=== PATIENT | female | born 1965 | race Caucasian/White ===

== ENCOUNTER 2025-08-20 06:37 | Inpatient (IN) | payer MEDICAID, SELFPAY ==
[2025-08-20] VITALS (10 sets, daily range): BP systolic 106–146; BP diastolic 51–66; PULSE 78–97; RESP 16–22; TEMP 36.2–37.4; O2SAT 87–97; BMI 48.2; BMI 47.6
--- NOTE | ~2025-08-20 | XR_ITS ---
EXAMINATION: XR CHEST CLINICAL INFORMATION: cough COMPARISON: None available. TECHNIQUE: 2 views of the chest were obtained. FINDINGS: The cardiac, hilar, and mediastinal contours are normal. Lungs are mildly hyperaerated bilaterally, with mild flattening of the hemidiaphragms. There is patchy airspace and peribronchial opacity in the left lower lobe, suspicious for bronchopneumonia. The right lung appears clear. There is no pneumothorax or pleural effusion. There is no focal osseous or soft tissue abnormality. XR/XR chest 2V IMPRESSION: Findings suspicious for patchy left lower lobe bronchopneumonia. Electronically signed by: Jason Sethi MD 08/20/2025 08:33 AM [facility]
--- NOTE | 2025-08-20 06:48 | ED.SOB ---
HPI - SOB/Dyspnea General Chief Complaint: Dyspnea Stated Complaint: SOB,PROD COUGH X4D, DUONEB/SOLUMEDROL GIVEN Time Seen by Provider: 08/20/25 06:43 Source: patient Mode of arrival: EMS Limitations: no limitations History of Present Illness HPI Narrative: This is a 59 years old the patient with a history of asthma presented to the emergency department complaining of shortness of breath, cough malaise. She was brought here by the assessment manager she was given nebulizer albuterol and Solu-Medrol 125 by the EMS. She denies any fever or chills MD elicited complaint: shortness of breath, cough and asthma attack Pertinent past history: asthma Onset (ago): day(s) (3) Timing: constant Severity: moderate Exacerbating factors: nothing Relieving factors: nothing Known history of: asthma Associated symptoms: denies other symptoms Treatment prior to arrival: bronchodilator Related Data Home oxygen amount: none Allergies Allergy/AdvReac Type Severity Reaction Status Date / Time amoxicillin Allergy Severe Rash Verified 08/20/25 06:44 Review of Systems Constitutional: Constitutional: Reports no additional constitutional complaints ENT: Reports system reviewed and no additional complaints, except as documented Cardiovascular: Cardiovascular: Reports no additional cardiovascular complaints Respiratory: Respiratory: Reports chest congestion and Reports cough Gastrointestinal: Gastrointestinal: Reports as per [facility] Past Medical History Attestation statement: The following information was validated with the patient. [facility] Narrative: Asthma,fibromyalgia Social History Social History Smoked in Last 30 Days: Yes Use of substances other than those prescribed or required for medical reasons: No Advance Directives: No Advance Directives Information Provided: No Do you have a plan to hurt others: No Plan Physical Exam Exam: Exam: Mild distress Vital Signs: Vital Signs: Last Vital Signs Temp 98.5 F 08/20/25 08:44 Pulse 93 08/20/25 08:44 Resp 20 08/20/25 08:44 BP 136/61 08/20/25 08:44 Pulse Ox 87 L 08/20/25 09:28 O2 Del Method Room Air 08/20/25 09:28 O2 Flow Rate 1 08/20/25 08:44 BMI result Body Mass Index 48.2 Const: General: cooperative Nutritional Appearance: average body habitus Orientation/consciousness: oriented to person and patient oriented x3 HEENT: Head: Yes normal to inspection Ears: hearing grossly normal bilaterally General nose exam: Normal external nose present Face and sinus: Yes normal facial exam Mouth: Normal oral and palatal mucosa present Teeth and gingiva: dentition normal Throat: Yes posterior oropharynx normal Neck: Neck: Yes normal visual inspection Chest: Chest palpation & inspection: normal inspection of the chest Resp: Auscultation: wheezes Cardio: Jugular venous distension: no JVD Rate: regular rate GI: Inspection: Yes normal to inspection Palpation (GI): Soft to palpation, not firm and nontender Neuro: General: oriented to person and patient oriented x3 Motor exam (neuro): 5/5 motor strength present throughout Course Reevaluation(s) Reevaluation #1: Patient has 2 L of O2 requirement she will be admitted for IV antibiotic steroid neb Time: 09:38 Medications Administered Discontinued Medications Generic Name Dose Route Start Last Admin Trade Name Freq PRN Reason Stop Dose Admin Albuterol Sulfate 5 mg/ 0 mg 08/20/25 07:35 08/20/25 07:40 Albuterol/Ipratropium 3 ml INHALE 08/20/25 07:36 1 each ONCE ONE Administration Medical Decision Making Medical Decision Making [facility] Narrative: Patient is here with shortness of breath wheezing working diagnosis is asthma exacerbation we will administer beta 2 agonist she already had a steroid the in the field 09:46 a.m. clinical picture most consistent with a asthma exacerbation with underlying pneumonia she has a an oxygen requirement she will need admission Differential Diagnosis Differential Diagnoses: The differential diagnosis associated with the presentation includes Has been exacerbation/pneumonia/influenza Admission/Observation Consideration of admission/observation: Escalation of care including admission/observation considered Lab Data [facility] Lab Attestation statement: I reviewed the patient's lab results. 08/20/25 08:00 08/20/25 08:00 Labs: Lab Results 08/20/25 Range/Units 08:00 WBC 6.7 (4.8-10.8) X10*3/uL RBC 4.41 (4.20-5.50) X10*6/uL Hgb 11.8 L (12.0-16.0) g/dl Hct 38.9 (37.0-47.0) % MCV 88.2 (80.0-98.0) fL MCH 26.8 L (27.0-33.0) pg MCHC 30.3 L (31.0-35.0) g/dl RDW 13.6 (11.0-16.0) % Plt Count 225 (160-400) X10*3/uL MPV 10.7 (9.4-12.3) fL Immature Gran % (Auto) 0.4 (0.0-0.4) % Neut % (Auto) 60.7 (45-73) % Lymph % (Auto) 31.3 (20-40) % Swift % (Auto) 6.7 (2-11) % Eos % (Auto) 0.3 (0-4) % Baso % (Auto) 0.6 (0-2) % Lymph # (Auto) 2.1 (1.2-4.9) X10*3/uL Swift # (Auto) 0.5 (0.1-1.2) X10*3/uL Eos # (Auto) 0.0 (0.0-0.4) X10*3/uL Baso # (Auto) 0.0 (0.0-0.2) X10*3/uL Abs Immat Gran (auto) 0.03 (0.00-0.03) X10*3/uL Absolute Neuts (auto) 4.1 (2.0-8.3) x10*3/uL Absolute Nucleated RBC 0.000 (0.0-0.012) X10*3/uL Nucleated RBC % (auto) 0.0 (0.0-0.2) /100WBC Sodium 143 (135-145) mmol/L Potassium 3.5 (3.3-5.1) mmol/L Chloride 112 H (96-108) mmol/L Carbon Dioxide 21 L (22-29) mmol/L Anion Gap 14 (12-20) BUN 15 (9-16) mg/dL Creatinine 0.84 (0.5-1.4) mg/dL Estim Creat Clear Calc 93.1 Estimated GFR > 60 Random Glucose 183 H (60-115) mg/dL Calcium 9.3 (8.4-10.2) mg/dL Total Bilirubin 0.2 (0.0-1.0) mg/dL AST 33 H (5-31) U/L ALT 26 (0-31) U/L Alkaline Phosphatase 102 (39-117) U/L Troponin I High Sens < 2.7 (<3.5-17.0) ng/L Total Protein 7.0 (6.5-8.0) g/dL Albumin 4.5 (3.5-5.0) g/dL Influenza Type A (PCR) NEGATIVE (Negative) Influenza Type B (PCR) NEGATIVE (Negative) RSV RNA Qual (PCR) NEGATIVE (Negative) SARS-CoV-2 RNA (RT-PCR) NEGATIVE (Negative) Independent Interpretation I performed an independent interpretation of an: Plain X-Ray Interpretation: left lower lobe infiltrate Radiology Impression Discussion of test interpretation with radiology: I have reviewed the radiologist's reading. Radiologist Impression: al. Lungs are mildly hyperaerated bilaterally, with mild flattening of the hemidiaphragms. There is patchy airspace and peribronchial opacity in the left lower lobe, suspicious for bronchopneumonia. The right lung appears clear. There is no pneumothorax or pleural effusion. There is no focal osseous or soft tissue abnormality. XR/XR chest 2V IMPRESSION: Findings suspicious for patchy left lower lobe bronchopneumonia. Electronically signed by: Jason Sethi MD 08/20/2025 08:33 AM EST Dictated By: Jason Sethi MD Signed By: <Electronically signed by Jason Sethi MD in OV> 08/20/25832 DD/ 4 Critical Care Time Critical Care Time Critical Care Time: Yes Total Critical Care Time: 60 Attestation: Nebs multiple Discharge Plan Discharge Clinical Impression: Hypoxia Community acquired pneumonia Qualifiers: Laterality: left Lung location: lower lobe of lung Qualified Code(s): J18.9 - Pneumonia, unspecified organism Asthma exacerbation Qualifiers: Asthma severity: moderate Asthma persistence: persistent Qualified Code(s): J45.41 - Moderate persistent asthma with (acute) exacerbation Patient Disposition: Admitted As Inpatient Print Language: Lebanese
[2025-08-20] MEDS: Albuterol Sulfate 5 MG, Albuterol/Iprat 2.5/0.5MG 3 ML 3 ML INHALE (07:40)
[2025-08-20 08:06] LABS: MANUAL DIFF FLAG NO
[2025-08-20 08:11] LABS: Hematocrit 38.9 % (37.0-47.0); Hemoglobin 11.8 g/dl (12.0-16.0); Imm Gran Abs Auto 0.03 X10*3/uL (0.00-0.03); Imm Gran Pct Auto 0.4 % (0.0-0.4); Lymphocytes Absolute Auto 2.1 X10*3/uL (1.2-4.9); Mean Corpuscular HGB Conc 30.3 g/dl (31.0-35.0); Mean Corpuscular Hemoglobin 26.8 pg (27.0-33.0); Mean Corpuscular Volume 88.2 fL (80.0-98.0); NRBC Abs Auto 0.000 X10*3/uL (0.0-0.012); NRBC Pct Auto 0.0 /100WBC (0.0-0.2); Platelet Count 225 X10*3/uL (160-400); Red Blood Count 4.41 X10*6/uL (4.20-5.50); White Blood Count 6.7 X10*3/uL (4.8-10.8)
[2025-08-20 08:25] LABS: Alanine Aminotransferase 26 U/L (0-31); Albumin Level 4.5 g/dL (3.5-5.0); Alkaline Phosphatase 102 U/L (39-117); Anion Gap 14 (12-20); Aspartate Amino Transferase 33 U/L (5-31); Blood Urea Nitrogen 15 mg/dL (9-16); Calcium 9.3 mg/dL (8.4-10.2); Carbon Dioxide 21 mmol/L (22-29); Chloride 112 mmol/L (96-108); Creatinine Clr Calc Pharmacy 93.1; Estimated Glomerular Filt Rate > 60; Potassium 3.5 mmol/L (3.3-5.1); Sodium 143 mmol/L (135-145); Total Protein 7.0 g/dL (6.5-8.0)
[2025-08-20 08:33] LABS: Troponin-I High Sensitivity < 2.7 ng/L (<3.5-17.0)
[2025-08-20 08:44] LABS: Resp Syncy Virus RNA Qual PCR NEGATIVE (Negative); SARS COV2 PCR INHOUSE NEGATIVE (Negative)
--- NOTE | 2025-08-20 10:02 | PM.IMHP ---
History of Present Illness Date of Service: 08/20/25 Chief Complaint: Wheezing 59-year-old woman presenting from a senior living to the ED with complaints of worsening shortness breath, fever, chills. She reports that there was some sort of virus going around in the senior living and she feels like she probably got it. Her symptoms started about 4 days ago with shortness of breath and wheezing. She has not inhaler but reports that it does not work for her and she does not like it. She denied any chest pain, vomiting, diarrhea. She smokes 6 cigarettes a day and is not on oxygen. Chest x-ray shows findings suspicious for patchy left lower lobe bronchopneumonia. Patient received albuterol and doxycycline in the ER. She will be placed on observation for acute hypoxic respiratory failure secondary to asthma exacerbation. Review of Systems Review of Systems: Denies any recent fever chills or decrease in appetite respiratory see HPI cardiovascular denied chest pain gastrointestinal denies any dysphagia abdominal pain nausea vomiting or diarrhea genitourinary denies any dysuria frequency or hematuria musculoskeletal denies any joint pain or swelling neuropsych denies any weakness or seizures all other systems reviewed are negative [facility] Medical History (Updated 08/20/25 @ 10:06 by lGory Kang NP) Perirectal fistula Anxiety Chronic back pain Asthma Family History (Updated 08/20/25 @ 10:06 by Glory Kang NP) Brother Cardiac disease Social History (Updated 08/20/25 @ 10:09 by Glory Kang NP) Housing Other:: from [facility], came [facility] house/ Grp home Alcohol intake: former Comment: Sober for 4 months Tobacco use type: Cigarette Cigarettes Per Day: 6 Meds Allergies Allergy/AdvReac Type Severity Reaction Status Date / Time amoxicillin Allergy Severe Rash Verified 08/20/25 06:44 Active Medications: Current Medications Acetaminophen (Acetaminophen 325 Mg Tablet) 650 mg PO Q6H PRN PRN Reason: Pain, Mild 1-3,fever,headache Calcium Carbonate (Calcium Carbonate 750 Mg Tab.Chew) 750 mg PO Q4H PRN PRN Reason: Heartburn Enoxaparin Sodium (Enoxaparin Sodium 40 Mg/0.4 Ml Syringe) 40 mg SUBCUT Q24H RIGO Doxycycline Hyclate 100 mg/ (Sodium Chloride) 250 mls @ 166.67 mls/hr IV ONCE ONE Stop: 08/20/25 11:02 Magnesium Hydroxide (Milk Of Magnesia 30 Ml Oral.Susp) 30 ml PO DAILY PRN PRN Reason: Constipation Melatonin (Melatonin 3 Mg Tablet) 6 mg PO BEDTIME PRN PRN Reason: Insomnia Ondansetron HCl (Ondansetron Hcl 4 Mg/2 Ml Vial) 4 mg IVPUSH Q8H PRN PRN Reason: Nausea and Vomiting Sodium Chloride (0.9 % Sodium Chloride Flush 3 Ml Syringe) [facility]ations ?Medication ?Instructions ?Recorded ?Confirmed ?Last Taken ?Type aripiprazole 20 mg tablet 20 mg PO DAILY 08/20/25 Unknown History clonazepam 2 mg tablet 2 mg PO TID PRN Anxiety 08/20/25 08/20/25 Unknown History fluoxetine 20 mg capsule 20 mg PO DAILY 08/20/25 Unknown History gabapentin 600 mg tablet mg PO 08/20/25 Unknown History lisdexamfetamine 30 mg capsule 30 mg PO DAILY 08/20/25 Unknown History (Ameena) Physical Exam Vital Signs and Narrative: Vital Signs: Last Vital Signs Temp 98.5 F 08/20/25 08:44 Pulse 93 08/20/25 08:44 Resp 20 08/20/25 08:44 BP 136/61 08/20/25 08:44 Pulse Ox 87 L 08/20/25 09:28 O2 Del Method Room Air 08/20/25 09:28 O2 Flow Rate 1 08/20/25 08:44 BMI result Body Mass Index 48.2 Appearing in no acute distress head is normocephalic atraumatic eyes pupils are PERRLA sclera is anicteric mouth throat mucous membranes are intact and moist neck is supple no lymphadenopathy, no JVD noted lung sounds expiratory wheezing heart regular rate rhythm, clear S1, S2 positive bowel sounds, abdomen is soft, nontender neuro patient is alert x3, no focal deficits Results Labs 08/20/25 08:00 08/20/25 08:00 Labs: Laboratory Results - last 24 hr 08/20/25 08:00 MCV 88.2 MCH 26.8 L MCHC 30.3 L RDW 13.6 Plt Count 225 MPV 10.7 Immature Gran % (Auto) 0.4 Neut % (Auto) 60.7 Lymph % (Auto) 31.3 [place] % (Auto) 6.7 Eos % (Auto) 0.3 Baso % (Auto) 0.6 Lymph # (Auto) 2.1 [place] # (Auto) 0.5 Eos # (Auto) 0.0 Baso # (Auto) 0.0 Abs Immat Gran (auto) 0.03 Absolute Neuts (auto) 4.1 Absolute Nucleated RBC 0.000 Nucleated RBC % (auto) 0.0 Anion Gap 14 Estim Creat Clear Calc 93.1 Estimated GFR > 60 Random Glucose 183 H Calcium 9.3 Total Bilirubin 0.2 AST 33 H ALT 26 Alkaline Phosphatase 102 Troponin I High Sens < 2.7 Total Protein 7.0 Albumin 4.5 Influenza Type A (PCR) NEGATIVE Influenza Type B (PCR) NEGATIVE RSV RNA Qual (PCR) NEGATIVE SARS-CoV-2 RNA (RT-PCR) NEGATIVE Imaging Radiologist's Impressions: Impressions Chest X-Ray 08/20/25 08:25 IMPRESSION: Findings suspicious for patchy left lower lobe bronchopneumonia. Electronically signed by: Jason Sethi MD 08/20/2025 08:33 AM [facility] Assessment and Plan (1) Asthma exacerbation: Qualifiers: Asthma persistence: persistent Asthma severity: moderate Qualified Code(s): J45.41 - Moderate persistent asthma with (acute) exacerbation Status: Acute Plan 59-year-old woman admitted with acute hypoxic respiratory failure secondary to asthma exacerbation and bronchopneumonia Acute hypoxic respiratory failure secondary to asthma exacerbation and bronchopneumonia Started on IV doxycycline Prednisone Scheduled DuoNebs, patient requested updraft machine when discharged Supplemental oxygen to keep oxygen saturation greater than 90% Check respiratory pathogen panel Mental health Continue home medications Chronic back pain Continue gabapentin Tobacco use Patient states she smokes 6 cigarettes today Discussed the importance of smoking cessation Nicotine replacement offered Obesity class 3. BMI 48.2 Discussed importance of weight management as this may be contributing to worsening of other comorbidities DVT prophylaxis with Lovenox Full code Quality Stroke Does the patient have a stroke diagnosis?: No VTE Prior VTE?: No VTE Risk Level:: Medical - moderate - high VTE Device Contraindication: Treatment Not Indicated VTE Drug Contraindication: N/A - Med Ordered
--- NOTE | 2025-08-20 11:04 | HO.NURTONUR ---
came in with cough and sob, ra spo2 87-88, pneumonia, ambulates without assistance, 20 l upper arm, on 2lpm nc, alert
[2025-08-20] MEDS: Albuterol Sulfate (0.083%) 2.5 MG/3 ML VIAL.NEB INHALE ×3 (11:17→19:41)
[2025-08-20 11:37] LABS: Chlamydia pneumoniae PCR Not Detected (Not Detect.); Coronavirus 229E PCR Not Detected (Not Detect.); Coronavirus HKU1 PCR Not Detected (Not Detect.); Coronavirus NL63 PCR Not Detected (Not Detect.); Coronavirus OC43 PCR Not Detected (Not Detect.); RSV PCR Not Detected (Not Detect.); Rhino/Enterovirus PCR Not Detected (Not Detect.)
[2025-08-20 11:47] LABS: Influenza A H1 PCR Not Detected (Not Detect.); Influenza A H1-2009 PCR Not Detected (Not Detect.); Influenza A H3 PCR Not Detected (Not Detect.); SARS-CoV-2 PCR Not Detected (Not Detect.)
[2025-08-20 12:21] LABS: Reflex Lactate? Lactic Acid Added
[2025-08-20 13:18] LABS: ~Lactic Acid-LAB USE ONLY 3.3 mmol/L (0.5-2.0)
[2025-08-20 14:36] LABS: Reflex Lactate? 2 Y
[2025-08-20 15:38] LABS: ~Lactic Acid-LAB USE ONLY 3.3 mmol/L (0.5-2.0)
--- NOTE | 2025-08-20 16:13 | PHA.MEDREC ---
Addendum entered by Isabell Barron [facility] 08/20/25 17:28: Glory Kang contacted med rec complete Original Note: Pharmacy Consult ? Medication Reconciliation Pharmacy has completed the medication reconciliation.Spoke with RN at [facility] who verified all medication and directions. Medications were recently filled at [facility] and patient was recently at [facility] where most of these medications came from.
[2025-08-20] MEDS: 0.9 % Sodium Chloride Flush 3 ML SYRINGE IVFLUSH (20:06)
[2025-08-21] VITALS (8 sets, daily range): BP systolic 109–158; BP diastolic 51–67; PULSE 76–89; RESP 18–21; TEMP 36–36.6; O2SAT 92–94
[2025-08-21 06:06] LABS: Hematocrit 38.4 % (37.0-47.0); Hemoglobin 11.7 g/dl (12.0-16.0); Mean Corpuscular HGB Conc 30.5 g/dl (31.0-35.0); Mean Corpuscular Hemoglobin 26.7 pg (27.0-33.0); Mean Corpuscular Volume 87.7 fL (80.0-98.0); NRBC Abs Auto 0.000 X10*3/uL (0.0-0.012); NRBC Pct Auto 0.0 /100WBC (0.0-0.2); Platelet Count 258 X10*3/uL (160-400); Red Blood Count 4.38 X10*6/uL (4.20-5.50); White Blood Count 7.1 X10*3/uL (4.8-10.8)
[2025-08-21 06:24] LABS: Anion Gap 11 (12-20); Blood Urea Nitrogen 22 mg/dL (9-16); Calcium 9.2 mg/dL (8.4-10.2); Carbon Dioxide 25 mmol/L (22-29); Chloride 115 mmol/L (96-108); Creatinine Clr Calc Pharmacy 84.4; Estimated Glomerular Filt Rate > 60; Potassium 4.2 mmol/L (3.3-5.1); Sodium 147 mmol/L (135-145)
[2025-08-21] MEDS: 0.9 % Sodium Chloride Flush 3 ML SYRINGE IVFLUSH ×2 (08:02→23:34)
[2025-08-21] MEDS: Albuterol Sulfate (0.083%) 2.5 MG/3 ML VIAL.NEB INHALE ×4 (08:32→20:12)
--- NOTE | 2025-08-21 09:51 | MHC.CM.PN ---
pt lives at [facility], [place] where she will return when dcd pt fro the [place] [facility] she willmay need assist with transport back to [facility]
--- NOTE | 2025-08-21 11:20 | PC.NURSE ---
Pt changed from OBS to In pt
--- NOTE | 2025-08-21 11:37 | P.PNIM_ITS ---
Subjective Subjective Date of Service: 08/21/25 Interval History: Patient seen examined at bedside this morning, patient states that her breathing has improved, sodium is 147. At this time states that she is feeling better than yesterday. Review of Systems Review of Systems: Yes all other systems are reviewed and are negative Physical Exam 2 Exam: Exam: General: AxOx3, No acute distress Head: AT/NC ENT: Moist mucous membranes Neck: supple CVS; RRR, S1 S2 normal Lungs: Decreased bilateral breath sounds, wheezing Abd: Soft non tender, non distended Ext: No edema and no calf tenderness MSK: moving all 4 limbs Skin: No cyanosis or edema Psych: Cooperative with exam Neurology: no focal deficit Vital Signs: Vital Signs: Last Vital Signs Temp 97.8 F 08/21/25 07:32 Pulse 76 08/21/25 11:07 Resp 18 08/21/25 11:07 BP 109/51 L 08/21/25 07:32 Pulse Ox 92 08/21/25 07:32 O2 Del Method Room Air 08/21/25 07:32 O2 Flow Rate 1 08/20/25 08:44 BMI result Body Mass Index 47.6 Objective Data Active Medications Acetaminophen (Acetaminophen 325 Mg Tablet) 650 mg PO Q6H PRN PRN Reason: Pain, Mild 1-3,fever,headache Last Admin: 08/20/25 23:26 Dose: 650 mg Documented By: SANJANA Albuterol Sulfate (Albuterol Sulfate (0.083%) 2.5 Mg/3 Ml Vial.Neb) 2.5 mg INHALE RQ4H WHILE AWAKE [facility] Last Admin: 08/21/25 11:03 Dose: 2.5 mg Documented By: MIGUEL Aripiprazole (Aripiprazole 20 Mg Tablet) 20 mg PO BEDTIME [facility] Last Admin: 08/20/25 20:06 Dose: 20 mg Documented By: SANJANA Calcium Carbonate (Calcium Carbonate 750 Mg Tab.Chew) 750 mg PO Q4H PRN PRN Reason: Heartburn Clonazepam (Clonazepam 1 Mg Tablet) 2 mg PO TID PRN PRN Reason: Anxiety Last Admin: 08/20/25 22:47 Dose: 2 mg Documented By: SANJANA Clonidine HCl (Clonidine Hcl 0.1 Mg Tablet) 0.1 mg PO DAILY@0700 [facility]; Protocol Clonidine HCl (Clonidine Hcl 0.2 Mg Tablet) 0.2 mg PO BEDTIME [facility]; Protocol Enoxaparin Sodium (Enoxaparin Sodium 40 Mg/0.4 Ml Syringe) 40 mg SUBCUT Q24H [facility] Last Admin: 08/21/25 11:10 Dose: 40 mg Documented By: LISETTE Fluoxetine HCl (Fluoxetine Hcl 20 Mg Capsule) 20 mg PO DAILY [facility] Last Admin: 08/21/25 09:00 Dose: 20 mg Documented By: LISETTE Gabapentin (Gabapentin 600 Mg Tablet) 600 mg PO BID [facility] Last Admin: 08/21/25 08:59 Dose: 600 mg Documented By: LISETTE Hydroxyzine HCl (Hydroxyzine Hcl 50 Mg Tablet) 50 mg PO BID [facility] Doxycycline Hyclate 100 mg/ (Sodium Chloride) 250 mls @ 166.67 mls/hr IV Q12H [facility] Last Infusion: 08/21/25 10:37 Dose: Infused Documented By: LISETTE Sodium Chloride (Sodium Chloride 0.45 %) 1,000 mls @ 80 mls/hr IVCONT .[id number] [facility] Stop: 08/22/25 08:44 Last Admin: 08/21/25 07:58 Dose: 80 mls/hr Documented By: LISETTE Magnesium Hydroxide (Milk Of Magnesia 30 Ml Oral.Susp) 30 ml PO DAILY PRN PRN Reason: Constipation Melatonin (Melatonin 3 Mg Tablet) 6 mg PO BEDTIME PRN PRN Reason: Insomnia Nicotine Polacrilex (Nicotine Polacrilex 2 Mg Gum) 2 mg BUCCAL Q2H PRN PRN Reason: Nicotine Cravings Non-Formulary Medication (Lisdexamfetamine [Vyvanse]) 30 mg PO DAILY [facility] Ondansetron HCl (Ondansetron Hcl 4 Mg/2 Ml Vial) 4 mg IVPUSH Q8H PRN PRN Reason: Nausea and Vomiting Prednisone (Prednisone 20 Mg Tablet) 40 mg PO DAILY [facility] Last Admin: 08/21/25 09:00 Dose: 40 mg Documented By: LISETTE Sodium Chloride (0.9 % Sodium Chloride Flush 3 Ml Syringe) 3 ml IVFLUSH QSHIFT [facility] Last Admin: 08/21/25 08:02 Dose: 3 ml Documented By: LISETTE Topiramate (Topiramate 25 Mg Tablet) 50 mg PO BID [facility] Labs 08/21/25 05:44 08/21/25 05:44 Labs: Laboratory Results - last 24 hr 08/20/25 08/20/25 08/20/25 10:30 12:31 14:49 MCV MCH MCHC RDW Plt Count MPV Absolute Nucleated RBC Nucleated RBC % (auto) Anion Gap Estim Creat Clear Calc Estimated GFR Random Glucose Lactic Acid F/U @ 2Hr 3.3 H* Lactic Acid F/U @ 4Hr 3.3 H* Calcium Respiratory Panel Lock[place] See Note Adenovirus (Rapid PCR) Not Detected B.pert (TEM-PCR) Not Detected B.parapertussis DNA PCR Not Detected C. pneumoniae DNA (PCR) Not Detected Coronavirus OC43 (PCR) Not Detected Coronavirus HKU1 (PCR) Not Detected Coronavirus 229E (PCR) Not Detected Coronavirus NL63 (PCR) Not Detected Human Metapneumovir PCR Not Detected Influenza A (RT-PCR) Not Detected Influenza A (H1) PCR Not Detected Influ A () PCR Not Detected Influenza A (H3) PCR Not Detected Influenza B (RT-PCR) Not Detected M. pneumoniae (PCR) Not Detected Parainfluenza 1 (PCR) Not Detected Parainfluenza 2 (PCR) Not Detected Parainfluenza 3 (PCR) Not Detected Parainfluenza 4 (PCR) Not Detected RSV (PCR) Not Detected Entero/Rhino (PCR) Not Detected SARS-CoV-2 RNA (RT-PCR) Not Detected 08/21/25 05:44 MCV 87.7 MCH 26.7 L MCHC 30.5 L RDW 13.5 Plt Count 258 MPV 10.9 Absolute Nucleated RBC 0.000 Nucleated RBC % (auto) 0.0 Anion Gap 11 L Estim Creat Clear Calc 84.4 Estimated GFR > 60 Random Glucose 144 H Lactic Acid F/U @ 2Hr Lactic Acid F/U @ 4Hr Calcium 9.2 Respiratory Panel [place] Adenovirus (Rapid PCR) B.pert (TEM-PCR) B.parapertussis DNA PCR C. pneumoniae DNA (PCR) Coronavirus OC43 (PCR) Coronavirus HKU1 (PCR) Coronavirus 229E (PCR) Coronavirus NL63 (PCR) Human Metapneumovir PCR Influenza A (RT-PCR) Influenza A (H1) PCR Influ A () PCR Influenza A (H3) PCR Influenza B (RT-PCR) M. pneumoniae (PCR) Parainfluenza 1 (PCR) Parainfluenza 2 (PCR) Parainfluenza 3 (PCR) Parainfluenza 4 (PCR) RSV (PCR) Entero/Rhino (PCR) SARS-CoV-2 RNA (RT-PCR) Assessment and Plan (1) Asthma exacerbation: Status: Acute (2) Community acquired pneumonia: Status: Acute Plan 59-year-old woman admitted with acute hypoxic respiratory failure secondary to asthma exacerbation and bronchopneumonia Acute hypoxic respiratory failure secondary to asthma exacerbation and bronchopneumonia, improving Asthma exacerbation likely secondary to pneumonia, improving respiratory panel, negative imaging reviewed continue IV doxycycline Prednisone 40mg qd x 5 days, does not require taper Scheduled DuoNebs, patient requested updraft machine when discharged Continue Supplemental oxygen to keep oxygen saturation greater than 90% Mood disorder ANCA -continue continue clonidine, hydroxyzine, aripiprazole, clonazepam, fluoxetine and Vyvanse -we will monitor for any worsening, to consider consulting Psychiatry if needed. Chronic back pain Neuropathy Continue gabapentin 600mg BID Tobacco use Patient states she smokes 6 cigarettes today Discussed the importance of smoking cessation Nicotine replacement offered Obesity class 3. BMI 48.2 Discussed importance of weight management as this may be contributing to worsening of other comorbidities DVT prophylaxis with Lovenox Full code Total time managing care of this patient today: 55 minutes. Quality Stroke Does the patient have a stroke diagnosis?: No VTE Prior VTE?: No VTE Risk Level:: Medical - moderate - high VTE Device Contraindication: Treatment Not Indicated VTE Drug Contraindication: N/A - Med Ordered
[2025-08-22] VITALS (7 sets, daily range): BP systolic 122–125; BP diastolic 57–64; PULSE 69–93; RESP 18–20; TEMP 36.1–36.7; O2SAT 92–95
[2025-08-22] MEDS: Albuterol Sulfate (0.083%) 2.5 MG/3 ML VIAL.NEB INHALE ×2 (07:46→20:11)
[2025-08-22 07:58] LABS: Hematocrit 40.1 % (37.0-47.0); Hemoglobin 12.0 g/dl (12.0-16.0); Mean Corpuscular HGB Conc 29.9 g/dl (31.0-35.0); Mean Corpuscular Hemoglobin 26.7 pg (27.0-33.0); Mean Corpuscular Volume 89.1 fL (80.0-98.0); NRBC Abs Auto 0.000 X10*3/uL (0.0-0.012); NRBC Pct Auto 0.0 /100WBC (0.0-0.2); Platelet Count 269 X10*3/uL (160-400); Red Blood Count 4.50 X10*6/uL (4.20-5.50); White Blood Count 8.6 X10*3/uL (4.8-10.8)
[2025-08-22 08:11] LABS: Anion Gap 10 (12-20); Blood Urea Nitrogen 21 mg/dL (9-16); Calcium 8.8 mg/dL (8.4-10.2); Carbon Dioxide 21 mmol/L (22-29); Chloride 116 mmol/L (96-108); Creatinine Clr Calc Pharmacy 104.9; Estimated Glomerular Filt Rate > 60; Potassium 4.0 mmol/L (3.3-5.1); Sodium 143 mmol/L (135-145)
--- NOTE | 2025-08-22 14:39 | MHC.CM.PN ---
per rounds pt will be ready for dc in 1 to 2 days plan is retrun to [facility]
--- NOTE | 2025-08-22 15:57 | P.PNIM_ITS ---
Subjective Subjective Date of Service: 08/22/25 Interval History: Acute hypoxemic respiratory failure Review of Systems Patient has shortness of breath with minimal exertion, also has cough. Review of Systems: Yes all other systems are reviewed and are negative Physical Exam 2 Exam: Exam: Appearance: Alert.? Oriented X3.? cvs: rrr, [id number] , no murmur res: air entry diminshed : left base >right. abd: no rebound or guarding ,nt, bs present. ext pulses present , no cyanosis . neuro: axo3 , nonfocal. Vital Signs: Vital Signs: Last Vital Signs Temp 97.4 F 08/22/25 07:31 Pulse 83 08/22/25 07:48 Resp 18 08/22/25 07:48 BP 125/60 08/22/25 07:31 Pulse Ox 92 08/22/25 07:31 O2 Del Method Room Air 08/22/25 07:31 O2 Flow Rate 1 08/20/25 08:44 BMI result Body Mass Index 47.6 Objective Data Active Medications Acetaminophen (Acetaminophen 325 Mg Tablet) 650 mg PO Q6H PRN PRN Reason: Pain, Mild 1-3,fever,headache Last Admin: 08/20/25 23:26 Dose: 650 mg Documented By: SANJANA Albuterol Sulfate (Albuterol Sulfate (0.083%) 2.5 Mg/3 Ml Vial.Neb) 2.5 mg INHALE RQ4H WHILE AWAKE [facility] Last Admin: 08/22/25 15:14 Dose: Not Given Documented By: MIGUEL Non-Admin Reason: Patient Asleep Aripiprazole (Aripiprazole 20 Mg Tablet) 20 mg PO BEDTIME [facility] Last Admin: 08/21/25 21:42 Dose: 20 mg Documented By: MADELYN Calcium Carbonate (Calcium Carbonate 750 Mg Tab.Chew) 750 mg PO Q4H PRN PRN Reason: Heartburn Clonazepam (Clonazepam 1 Mg Tablet) 2 mg PO TID PRN PRN Reason: Anxiety Last Admin: 08/20/25 22:47 Dose: 2 mg Documented By: SANJANA Clonidine HCl (Clonidine Hcl 0.1 Mg Tablet) 0.1 mg PO DAILY@0700 [facility]; Protocol Last Admin: 08/22/25 08:01 Dose: 0.1 mg Documented By: LEAH Clonidine HCl (Clonidine Hcl 0.2 Mg Tablet) 0.2 mg PO BEDTIME [facility]; Protocol Last Admin: 08/21/25 21:41 Dose: 0.2 mg Documented By: MADELYN Enoxaparin Sodium (Enoxaparin Sodium 40 Mg/0.4 Ml Syringe) 40 mg SUBCUT Q24H [facility] Last Admin: 08/22/25 10:35 Dose: 40 mg Documented By: LEAH Fluoxetine HCl (Fluoxetine Hcl 20 Mg Capsule) 20 mg PO DAILY [facility] Last Admin: 08/22/25 08:01 Dose: 20 mg Documented By: LEAH Gabapentin (Gabapentin 600 Mg Tablet) 600 mg PO BID [facility] Last Admin: 08/22/25 08:01 Dose: 600 mg Documented By: LEAH Hydroxyzine HCl (Hydroxyzine Hcl 50 Mg Tablet) 50 mg PO BID [facility] Last Admin: 08/22/25 08:02 Dose: 50 mg Documented By: LEAH Doxycycline Hyclate 100 mg/ (Sodium Chloride) 250 mls @ 166.67 mls/hr IV Q12H [facility] Last Infusion: 08/22/25 09:33 Dose: Infused Documented By: LEAH Magnesium Hydroxide (Milk Of Magnesia 30 Ml Oral.Susp) 30 ml PO DAILY PRN PRN Reason: Constipation Melatonin (Melatonin 3 Mg Tablet) 6 mg PO BEDTIME PRN PRN Reason: Insomnia Nicotine Polacrilex (Nicotine Polacrilex 2 Mg Gum) 2 mg BUCCAL Q2H PRN PRN Reason: Nicotine Cravings Ondansetron HCl (Ondansetron Hcl 4 Mg/2 Ml Vial) 4 mg IVPUSH Q8H PRN PRN Reason: Nausea and Vomiting Prednisone (Prednisone 20 Mg Tablet) 40 mg PO DAILY [facility] Last Admin: 08/22/25 08:01 Dose: 40 mg Documented By: LEAH Sodium Chloride (0.9 % Sodium Chloride Flush 3 Ml Syringe) 3 ml IVFLUSH QSHIFT [facility] Last Admin: 08/22/25 10:11 Dose: Not Given Documented By: LEAH Non-Admin Reason: IV Running Topiramate (Topiramate 25 Mg Tablet) 50 mg PO BID [facility] Last Admin: 08/22/25 08:01 Dose: 50 mg Documented By: LEAH Labs 08/22/25 07:45 11/26/25 07:45 Labs: Laboratory Results - last 24 hr 08/22/25 07:45 MCV 89.1 MCH 26.7 L MCHC 29.9 L RDW 13.7 Plt Count 269 MPV 10.9 Absolute Nucleated RBC 0.000 Nucleated RBC % (auto) 0.0 Anion Gap 10 L Estim Creat Clear Calc 104.9 Estimated GFR > 60 Random Glucose 108 Lactic Acid 1.1 Calcium 8.8 Microbiology Microbiology Results: Microbiology 08/20/25 10:16 Blood Culture - Preliminary Blood - Venous No growth after 48 hours. 08/20/25 10:16 Blood Culture - Preliminary Blood - Venous No growth after 48 hours. Assessment and Plan (1) Asthma exacerbation: Status: Acute (2) Community acquired pneumonia: Status: Acute Assessment and Plan: 59-year-old woman admitted with acute hypoxic respiratory failure secondary to asthma exacerbation and bronchopneumonia Acute hypoxic respiratory failure secondary to asthma exacerbation and bronchopneumonia Asthma exacerbation likely secondary to pneumonia sob with minimal exertion, says respiratory status is still not optimal respiratory panel, negative imaging reviewed continue IV doxycycline Prednisone 40mg qd x 5 days, does not require taper Scheduled DuoNebs, patient requested updraft machine when discharged Continue Supplemental oxygen to keep oxygen saturation greater than 90% Mood disorder ANCA -continue continue clonidine, hydroxyzine, aripiprazole, clonazepam, fluoxetine and Vyvanse -we will monitor for any worsening, to consider consulting Psychiatry if needed. Chronic back pain Neuropathy Continue gabapentin 600mg BID Tobacco use Patient states she smokes 6 cigarettes today Discussed the importance of smoking cessation Nicotine replacement offered Obesity class 3. BMI 48.2 Discussed importance of weight management as this may be contributing to worsening of other comorbidities DVT prophylaxis with Lovenox Inpatient need of stay-Acute hypoxic respiratory failure secondary to asthma exacerbation and bronchopneumonia-taper oxygen , ambulate, monitor respiratory status closely not optimal yet. Quality Stroke Does the patient have a stroke diagnosis?: No VTE Prior VTE?: No VTE Risk Level:: Medical - moderate - high VTE Device Contraindication: Treatment Not Indicated VTE Drug Contraindication: N/A - Med Ordered
[2025-08-22] MEDS: 0.9 % Sodium Chloride Flush 3 ML SYRINGE IVFLUSH (17:17)
--- NOTE | 2025-08-22 17:38 | PC.NURSE ---
Dr Parker notified pt lost IV access pt refusing new IV placement. Per Dr Parker will switch to [place], pt ok without an IV as plan is for DC tomorrow.
[2025-08-23] VITALS (9 sets, daily range): BP systolic 107–138; BP diastolic 55–83; PULSE 65–102; RESP 17–22; TEMP 36.2–36.8; O2SAT 91–95
[2025-08-23] MEDS: Albuterol Sulfate (0.083%) 2.5 MG/3 ML VIAL.NEB INHALE ×4 (07:40→20:27)
--- NOTE | 2025-08-23 11:02 | P.DS_ITS ---
DS: Providers Provider Date of Service: 08/23/25 Date of admission: 08/21/25 09:49 Date of discharge: 08/23/25 Primary care physician: [facility] Attending physician on discharge: Marya Parker Discharging clinician: Marya Parker DS: Diagnosis Discharge Diagnosis (1) Asthma exacerbation: Status: Acute (2) Community acquired pneumonia: Status: Acute DS: Summary Hospital Course Hospital Course: HPI:59-year-old woman presenting from a alf to the ED with complaints of worsening shortness breath, fever, chills. She reports that there was some sort of virus going around in the alf and she feels like she probably got it. Her symptoms started about 4 days ago with shortness of breath and wheezing. She has not inhaler but reports that it does not work for her and she does not like it. She denied any chest pain, vomiting, diarrhea. She smokes 6 cigarettes a day and is not on oxygen. Chest x-ray shows findings suspicious for patchy left lower lobe bronchopneumonia. Patient received albuterol and doxycycline in the ER. She will be placed on observation for acute hypoxic respiratory failure secondary to asthma exacerbation. hospital course: Patient admitted for acute hypoxemic respiratory failure secondary to asthma exacerbation and possible bronchopneumonia on the chest imaging: Patient was started on nebs, steroids, respiratory viral panel also checked negative. In addition patient's blood cultures were sent-which is also negative@48hrs. With the above supportive care patient seems to be improved significantly, now asymptomatic ,not hypoxic even with ambulation. patient will be going home on ceftin/doxycycline ,prednisone as prescribed. Please repeat chest imaging in 3-4 to see resolution pneumonia. plan: complete ceftin/doxycycline , nebs as precribed,prednisone as prescribed. Please repeat chest imaging in 3-4 weeks to see resolution of pneumonia. Above management discussed with the patient in detail length she understand and in agreement with the above plan, time spent 50 minute. All questions answered. Time Attestation Total time managing care of this patient today: 50 mintues. Discharge Coordination Time (in mins): 50 min Quality: Safe Use of Opioids Does Pt have an Active Cancer Diagnosis on the Problem List?: No Quality: Stroke Does the patient have a stroke diagnosis?: No Physical Exam Exam: Exam: Appearance: Alert.? Oriented X3.? cvs: rrr, [id number] , no murmur res: air entry fair , no rales or wheezing abd: no rebound or guarding ,nt, bs present. ext pulses present , no cyanosis . neuro: axo3 , nonfocal. Vital Signs: Vital Signs: Last Vital Signs Temp 97.4 F 08/23/25 07:42 Pulse 65 08/23/25 07:42 Resp 18 08/23/25 07:42 BP 107/56 L 08/23/25 07:42 Pulse Ox 94 08/23/25 07:42 O2 Del Method Room Air 08/23/25 07:42 O2 Flow Rate 1 08/20/25 08:44 BMI result Body Mass Index 47.6 DS: Data Data Completed and Pending Labs on day of discharge: Preliminary micro results at discharge 08/20/25 10:16 Blood Culture - Preliminary Blood - Venous No growth after 48 hours. 08/20/25 10:16 Blood Culture - Preliminary Blood - Venous No growth after 48 hours. Imaging Chest x-ray: Radiologist's impression: ITS Impressions Chest X-Ray 08/20/25 08:25 IMPRESSION: Findings suspicious for patchy left lower lobe bronchopneumonia. Discharge Plan Discharge Anticipated Discharge Date/Time: 08/23/25 10:56 Patient Disposition: Home, Self-Care Discharge Diagnosis: Asthma exacerbation, pneumonia Referrals: [place],Pending Sale To [facility] [Primary Care Provider, Medical] - 1 Week Discharge Medications: New prednisone 20 mg Tablet 40 mg PO DAILY Qty: 6 0RF doxycycline monohydrate 100 mg Capsule 100 mg PO Q12H Qty: 12 0RF cefuroxime axetil 500 mg Tablet 500 mg PO BID Qty: 14 0RF albuterol sulfate 2.5 mg /3 mL (0.083 %) Solution For Nebulization 2.5 mg inhalation Q6H PRN (Reason: sob) Qty: 120 0RF Continued gabapentin 600 mg tablet 600 mg PO BID clonazepam 2 mg tablet 2 mg PO TID PRN (Reason: Anxiety) fluoxetine 20 mg capsule 20 mg PO DAILY aripiprazole 20 mg tablet 20 mg PO BEDTIME lisdexamfetamine [Vyvanse] 30 mg capsule 30 mg PO DAILY clonidine HCl 0.1 mg Tablet 0.1 mg PO DAILY@0700 hydroxyzine HCl 50 mg Tablet 50 mg PO BID clonidine HCl 0.2 mg Tablet 0.2 mg PO BEDTIME hydroxyzine HCl 25 mg Tablet 25 mg PO BEDTIME topiramate 50 mg Tablet 50 mg PO BID melatonin 5 mg Tablet 5 mg PO BEDTIME Discharge Orders: Discharge Order (Routine); Ordered 08/24/25 Ordered By: Marya Parker Diet: Advance to usual diet Activity on Discharge: As tolerated Stand Alone Forms: Patient Portal Discharge page, Work/School Release Print Language: [place] Care Plan Goals: Patient admitted for acute hypoxemic respiratory failure secondary to asthma exacerbation and possible bronchopneumonia on the chest imaging: Patient was started on nebs, steroids, respiratory viral panel also checked negative. In addition patient's blood cultures were sent-which is also negative@48hrs. With the above supportive care patient seems to be improved significantly, now asymptomatic not hypoxic even with ambulation. patient will be going home on ceftin/doxycycline ,prednisone as prescribed. Please repeat chest imaging in 3-4 to see resolution pneumonia. Health Concerns: complete ceftin/doxycycline ,prednisone as prescribed. Please repeat chest imaging in 3-4 weeks to see resolution of pneumonia. Plan of Treatment: as above. Assessment: As above. Patient Instructions: Pneumonia (DC) Discharge Date/Time: 08/24/25 10:17
--- NOTE | 2025-08-23 11:33 | P.PNIM_ITS ---
Subjective Subjective Date of Service: 08/24/25 Interval History: Acute hypoxemic respiratory failure Review of Systems shortness of breath with minimal exertion, also has cough. Review of Systems: Yes all other systems are reviewed and are negative Physical Exam 2 Exam: Exam: Appearance: Alert.? Oriented X3.? cvs: rrr, [id number] , no murmur res: air entry diminshed : left base >right. abd: no rebound or guarding ,nt, bs present. ext pulses present , no cyanosis . neuro: axo3 , nonfocal. Vital Signs: Vital Signs: Last Vital Signs Temp 97.4 F 08/23/25 07:42 Pulse 90 08/23/25 11:31 Resp 22 H 08/23/25 11:31 BP 107/56 L 08/23/25 07:42 Pulse Ox 94 08/23/25 07:42 O2 Del Method Room Air 08/23/25 07:42 O2 Flow Rate 1 08/20/25 08:44 BMI result Body Mass Index 47.6 Objective Data Active Medications Acetaminophen (Acetaminophen 325 Mg Tablet) 650 mg PO Q6H PRN PRN Reason: Pain, Mild 1-3,fever,headache Last Admin: 08/22/25 20:42 Dose: 650 mg Documented By: SANJANA Albuterol Sulfate (Albuterol Sulfate (0.083%) 2.5 Mg/3 Ml Vial.Neb) 2.5 mg INHALE RQ4H WHILE AWAKE [facility] Last Admin: 08/23/25 11:28 Dose: 2.5 mg Documented By: MITCHELL Aripiprazole (Aripiprazole 20 Mg Tablet) 20 mg PO BEDTIME [facility] Last Admin: 08/22/25 20:39 Dose: 20 mg Documented By: SANJANA Calcium Carbonate (Calcium Carbonate 750 Mg Tab.Chew) 750 mg PO Q4H PRN PRN Reason: Heartburn Cefuroxime Axetil (Cefuroxime Axetil 500 Mg Tablet) 500 mg PO BID [facility] Last Admin: 08/23/25 08:54 Dose: 500 mg Documented By: KATHY Clonazepam (Clonazepam 1 Mg Tablet) 2 mg PO TID PRN PRN Reason: Anxiety Last Admin: 08/22/25 22:54 Dose: 2 mg Documented By: SANJANA Clonidine HCl (Clonidine Hcl 0.1 Mg Tablet) 0.1 mg PO DAILY@0700 [facility]; Protocol Last Admin: 08/23/25 09:02 Dose: Not Given Documented By: KATHY Non-Admin Reason: Patient Refused Clonidine HCl (Clonidine Hcl 0.2 Mg Tablet) 0.2 mg PO BEDTIME [facility]; Protocol Last Admin: 08/22/25 20:39 Dose: 0.2 mg Documented By: SANJANA Doxycycline Monohydrate (Doxycycline Monohydrate 100 Mg Capsule) 100 mg PO Q12H [facility] Last Admin: 08/23/25 08:54 Dose: 100 mg Documented By: KATHY Enoxaparin Sodium (Enoxaparin Sodium 40 Mg/0.4 Ml Syringe) 40 mg SUBCUT Q24H [facility] Last Admin: 08/23/25 08:58 Dose: Not Given Documented By: KATHY Non-Admin Reason: Patient Refused Fluoxetine HCl (Fluoxetine Hcl 20 Mg Capsule) 20 mg PO DAILY [facility] Last Admin: 08/23/25 08:55 Dose: 20 mg Documented By: KATHY Gabapentin (Gabapentin 600 Mg Tablet) 600 mg PO BID [facility] Last Admin: 08/23/25 08:54 Dose: 600 mg Documented By: KATHY Hydroxyzine HCl (Hydroxyzine Hcl 50 Mg Tablet) 50 mg PO BID [facility] Last Admin: 08/23/25 08:54 Dose: 50 mg Documented By: KATHY Magnesium Hydroxide (Milk Of Magnesia 30 Ml Oral.Susp) 30 ml PO DAILY PRN PRN Reason: Constipation Melatonin (Melatonin 3 Mg Tablet) 6 mg PO BEDTIME PRN PRN Reason: Insomnia Nicotine Polacrilex (Nicotine Polacrilex 2 Mg Gum) 2 mg BUCCAL Q2H PRN PRN Reason: Nicotine Cravings Ondansetron HCl (Ondansetron Hcl 4 Mg/2 Ml Vial) 4 mg IVPUSH Q8H PRN PRN Reason: Nausea and Vomiting Prednisone (Prednisone 20 Mg Tablet) 40 mg PO DAILY [facility] Last Admin: 08/23/25 08:54 Dose: 40 mg Documented By: KATHY Sodium Chloride (0.9 % Sodium Chloride Flush 3 Ml Syringe) 3 ml IVFLUSH QSHIFT [facility] Last Admin: 08/23/25 08:58 Dose: Not Given Documented By: KATHY Non-Admin Reason: No Access Topiramate (Topiramate 25 Mg Tablet) 50 mg PO BID [facility] Last Admin: 08/23/25 08:55 Dose: 50 mg Documented By: KATHY Labs 08/22/25 07:45 08/22/25 07:45 Microbiology Microbiology Results: Microbiology 08/20/25 10:16 Blood Culture - Preliminary Blood - Venous No growth after 48 hours. 08/20/25 10:16 Blood Culture - Preliminary Blood - Venous No growth after 48 hours. Assessment and Plan (1) Asthma exacerbation: Status: Acute (2) Community acquired pneumonia: Status: Acute Assessment and Plan: 59-year-old woman admitted with acute hypoxic respiratory failure secondary to asthma exacerbation and bronchopneumonia Acute hypoxic respiratory failure secondary to asthma exacerbation and bronchopneumonia Asthma exacerbation likely secondary to pneumonia sob with minimal exertion, says respiratory status is still not optimal respiratory panel, negative imaging reviewed continue IV doxycycline Prednisone 40mg qd x 5 days, does not require taper Scheduled DuoNebs, patient requested updraft machine when discharged Continue Supplemental oxygen to keep oxygen saturation greater than 90% Mood disorder ANCA -continue continue clonidine, hydroxyzine, aripiprazole, clonazepam, fluoxetine and Vyvanse -we will monitor for any worsening, to consider consulting Psychiatry if needed. Chronic back pain Neuropathy Continue gabapentin 600mg BID Tobacco use Patient states she smokes 6 cigarettes today Discussed the importance of smoking cessation Nicotine replacement offered Obesity class 3. BMI 48.2 Discussed importance of weight management as this may be contributing to worsening of other comorbidities DVT prophylaxis with Lovenox Inpatient need of stay-Acute hypoxic respiratory failure secondary to asthma exacerbation and bronchopneumonia-taper oxygen , ambulate, monitor respiratory status closely not optimal yet. Quality Stroke Does the patient have a stroke diagnosis?: No VTE Prior VTE?: No VTE Risk Level:: Medical - moderate - high VTE Device Contraindication: Treatment Not Indicated VTE Drug Contraindication: N/A - Med Ordered
--- NOTE | 2025-08-23 12:04 | PC.RT ---
pt walked 80 feet and then up 24 stairs and sarah 24 stairs. pt was sob on exertion but sats remained above 91%. pt does not qualify for home oxygen. Dr. Parker aware. Will get a nebulizer ordered for dc tomorrow.
[2025-08-24 03:37] VITALS: BP 104/58; PULSE 66; RESP 16; TEMP 36.3; O2SAT 95
[2025-08-24 07:37] VITALS: BP 113/61; PULSE 76; RESP 18; TEMP 36.1; O2SAT 93
[2025-08-24 07:41] VITALS: PULSE 73; RESP 16; O2SAT 95
[2025-08-24] MEDS: Albuterol Sulfate (0.083%) 2.5 MG/3 ML VIAL.NEB INHALE (07:41)
[2025-08-24 08:16] VITALS: BP 113/61
--- NOTE | 2025-08-24 09:58 | MHC.CM.PN ---
PT WILL DC BACK TO [facility] TODAY WITH NO NEW SERVICES INDICATED SHE ARRANGED HER OWN TRANSPORT
--- NOTE | 2025-08-24 12:51 | P.CDIM_ITS ---
PROVIDER RESPONSE TEXT: To clarify, the appropriate diagnosis supported by the clinical indicators: Mild intermittent QUERY TEXT: PHYSICIAN'S DOCUMENTATION REQUEST Date of Query: 08/24/2025 08:04 AM EST Patient Name: Sindy Garcia Admit Date: 08/21/2025 Dear Marya Parker MD, A review of the medical record indicates additional documentation may be needed. Please review below and update the documentation accordingly. Progress note dated 08/22/25 - Acute hypoxic respiratory failure secondary to asthma exacerbation. Asthma exacerbation likely secondary to pneumonia. Prednisone 40mg qd x 5 days, does not require taper. Scheduled DuoNebs, continue supplemental oxygen to keep saturation greater than 90%. Based on the above, please clarify in the Progress Notes further specificity regarding the Asthma exacerbation: Mild intermittent Mild persistent Moderate persistent Severe persistent Exercise induced Chronic obstructive asthma and indicate if with acute lower respiratory infection Asthma with underlying COPD and indicate if with acute lower respiratory infection Other (explain) Clinically unable to determine (explain) Thank you, Blaire Rosa, CCS, CDIS Use of terms such as suspected, likely, concern for, or probable (associated with a specific diagnosis that is being evaluated, monitored, or treated as if it exists) are acceptable and can be coded in the inpatient setting, when documented at the time of discharge. Please use your independent medical judgment in providing your response. THIS QUERY IS PART OF THE PERMANENT MEDICAL RECORD
== END 2025-08-24 10:17 | disposition home or self-care (01) | DRG 139 ==
LOC: HO.ED 09:34 → HO.EDOVER 10:07 → HO.S3 10:56
PROVIDERS: Hospitalist; Admitting Provider Nurse Practitioner Acute Care; Emergency Provider Emergency Medicine; Visit Provider Internal Medicine
DX: J18.0 Bronchopneumonia, unspecified organism (principal); J96.01 Acute respiratory failure with hypoxia; J45.21 Mild intermittent asthma with (acute) exacerbation; F17.210 Nicotine dependence, cigarettes, uncomplicated; M54.9 Dorsalgia, unspecified; G89.29 Other chronic pain; F41.1 Generalized anxiety disorder; E66.813 Obesity, class 3; Z71.3 Dietary counseling and surveillance; Z68.42 Body mass index [BMI] 45.0-49.9, adult; Z71.6 Tobacco abuse counseling; Z20.822 Contact with and (suspected) exposure to COVID-19; Z79.899 Other long term (current) drug therapy
CPT/HCPCS: 36415; 71046; 80048; 80053; 83605; 84484; 85025; 85027; 87040; 87633; 87637; 94640; 99285; J1271; J1650

== ENCOUNTER → 2025-08-20 06:46 | Outpatient (BNV) | payer MEDICAID, SELFPAY | PROVIDERS: Emergency Provider Emergency Medicine; Visit Provider Radiology Diagnostic Radiology | DX: R05.9 Cough, unspecified (principal) | CPT/HCPCS: 71046 ==

== ENCOUNTER → 2025-08-21 09:49 | Outpatient (BNV) | payer MEDICAID, SELFPAY | PROVIDERS: Admitting Provider Nurse Practitioner Acute Care; Emergency Provider Emergency Medicine; Visit Provider Student in an Organized Health Care Education/Training Program | DX: J45.41 Moderate persistent asthma with (acute) exacerbation (principal); J18.9 Pneumonia, unspecified organism | CPT/HCPCS: 99231; 99232 ==

== ENCOUNTER 2025-09-24 04:46 | Emergency (ER) | payer MEDICAID, SELFPAY ==
--- NOTE | ~2025-09-24 | CT_ITS ---
EXAMINATION: CT CHEST ANGIOGRAPHY WITH IV CONTRAST INDICATION: CP, SOB, Covid, tachycardic COMPARISON: Correlation is made with an AP portable view of the chest performed earlier in the day. TECHNIQUE: Helical CT scan of the chest was performed following administration of intravenous contrast (65 mL Omnipaque 350). The contrast bolus was timed to optimally opacify the pulmonary arteries. Thin sections were obtained through the pulmonary arteries. Coronal and sagittal reformatted images were generated. 3D/MIP reconstructed images are also obtained and reviewed. This CT exam was performed with one or more of the following dose reduction techniques: automated exposure control, adjustment of the mA and/or kV according to patient size, use of iterative reconstruction technique. DLP: 504 mGy-cm CHEST: THYROID: The thyroid gland is unremarkable. PULMONARY ARTERIES: There is poor timing of the contrast bolus limiting evaluation for pulmonary emboli. LUNGS: There are small patchy airspace opacities in the right middle lobe and lingula, suspicious for pneumonia. MEDIASTINUM: There is no mediastinal lymphadenopathy. NEO: There is no hilar lymphadenopathy. CARDIOVASCULATURE: The heart is normal in size. There is no pericardial effusion. The thoracic aorta is normal in caliber. DEGREE OF CORONARY CALCIFICATION: mild PLEURA: There is no pleural effusion. No pneumothorax. MAIN AIRWAYS: The mainstem bronchi and proximal branches are patent. AXILLA: There is no axillary lymphadenopathy. UPPER ABDOMEN: The visualized portions of the liver, spleen, and adrenals are unremarkable. BONES AND SOFT TISSUES: Unremarkable. CT/CT angio chest PE protocol IMPRESSION: 1. Nondiagnostic examination for pulmonary emboli due to poor timing of the contrast bolus. If there remains clinical concern for pulmonary emboli, a repeat study or VQ scan could be performed. 1.Patchy airspace opacities in the right middle lobe and lingula, suspicious for pneumonia. Electronically signed by: Raciel Ibarra MD 09/24/2025 08:19 AM [facility]
--- NOTE | ~2025-09-24 | XR_ITS ---
CLINICAL HISTORY: SOB 1 view chest x-ray Comparison: CR/VT/SR - XR CHEST 2 VIEWS - 08/20/25 08:25 EST Findings: The lungs are clear and mildly hyperinflated. Heart size is normal. No acute fracture. IMPRESSION: 1. No acute findings. This document has been electronically signed by: Austin Najera MD on 09/24/2025 06:02:07
[2025-09-24 04:57] VITALS: BP 118/91; BP 130/87; PULSE 86; PULSE 88; RESP 16; TEMP 36.7; O2SAT 95; BMI 46.5
[2025-09-24 05:19] LABS: MANUAL DIFF FLAG NO
[2025-09-24 05:20] LABS: Hematocrit 44.3 % (37.0-47.0); Hemoglobin 13.4 g/dl (12.0-16.0); Imm Gran Abs Auto 0.02 X10*3/uL (0.00-0.03); Imm Gran Pct Auto 0.4 % (0.0-0.4); Lymphocytes Absolute Auto 2.1 X10*3/uL (1.2-4.9); Mean Corpuscular HGB Conc 30.2 g/dl (31.0-35.0); Mean Corpuscular Hemoglobin 26.2 pg (27.0-33.0); Mean Corpuscular Volume 86.5 fL (80.0-98.0); NRBC Abs Auto 0.000 X10*3/uL (0.0-0.012); NRBC Pct Auto 0.0 /100WBC (0.0-0.2); Platelet Count 259 X10*3/uL (160-400); Red Blood Count 5.12 X10*6/uL (4.20-5.50); White Blood Count 4.6 X10*3/uL (4.8-10.8)
[2025-09-24 05:34] LABS: Alanine Aminotransferase 36 U/L (0-31); Albumin Level 4.4 g/dL (3.5-5.0); Alkaline Phosphatase 133 U/L (39-117); Anion Gap 12 (12-20); Aspartate Amino Transferase 35 U/L (5-31); Blood Urea Nitrogen 18 mg/dL (9-16); Calcium 9.2 mg/dL (8.4-10.2); Carbon Dioxide 21 mmol/L (22-29); Chloride 114 mmol/L (96-108); Creatinine Clr Calc Pharmacy 96.9; Estimated Glomerular Filt Rate > 60; Potassium 4.0 mmol/L (3.3-5.1); Sodium 143 mmol/L (135-145); Total Protein 6.9 g/dL (6.5-8.0)
[2025-09-24 05:56] LABS: Resp Syncy Virus RNA Qual PCR NEGATIVE (Negative); SARS COV2 PCR INHOUSE POSITIVE (Negative)
--- NOTE | 2025-09-24 06:16 | PC.NURSE ---
Provider into assess pt, labs and x-ray taken, awaiting disposition.
--- NOTE | 2025-09-24 06:20 | ECG_ITS ---
Test Reason : SOB Blood Pressure : */* mmHG Vent. Rate : 81 BPM Atrial Rate : 81 BPM P-R Int : 152 ms QRS Dur : 94 ms QT Int : 420 ms P-R-T Axes : 63 -12 80 degrees QTcB Int : 487 ms Normal sinus rhythm Low voltage QRS Prolonged QT Abnormal ECG No previous ECGs available Referred By: Debbie Catalan Electronically Signed By: LUCIANO ZIMMER
--- NOTE | 2025-09-24 06:48 | ED_ITS ---
HPI - General Adult General Chief complaint: General Medical Stated complaint: unable to sleep Time Seen by Provider: 09/24/25 04:54 Source: patient and EMS Mode of arrival: EMS Limitations: no limitations History of Present Illness ED Provider: Dr. Debbie Catalan HPI narrative: Patient comes to the emergency room complaining of bilateral chest pain, severe burning sensation on the inside, shortness of breath, palpitations. Patient states that she had pneumonia several weeks ago, has asthma, has been using her inhaler multiple times with relief. However, short lasting. Patient states that she has been unable to sleep because she becomes significantly short of breath at night. Patient states that she feels like her chest/lungs are on fire Related Data Home Medications ?Medication ?Instructions ?Recorded ?Confirmed aripiprazole 20 mg tablet 20 mg PO BEDTIME 08/20/25 clonazepam 2 mg tablet 2 mg PO TID PRN Anxiety 07/2908/20/25 clonidine HCl 0.1 mg tablet 0.1 mg PO DAILY@0700 08/2008/20/25 clonidine HCl 0.2 mg tablet 0.2 mg PO BEDTIME 08/20/25 08/20/25 fluoxetine 20 mg capsule 20 mg PO DAILY 08/20/2507/29 gabapentin 600 mg tablet 600 mg PO BID 08/20/2508/20 hydroxyzine HCl 25 mg tablet 25 mg PO BEDTIME 08/20/25 08/20/25 hydroxyzine HCl 50 mg tablet 50 mg PO BID 08/20/25 lisdexamfetamine 30 mg capsule 30 mg PO DAILY 08/20/25 08/20/25 (Vyvanse) melatonin 5 mg tablet 5 mg PO BEDTIME 08/20/25 topiramate 50 mg tablet 50 mg PO BID 08/20/25 Previous Rx's ?Medication ?Instructions ?Recorded cefuroxime axetil 500 mg tablet 500 mg PO BID #14 tabs 08/23/25 doxycycline monohydrate 100 mg 100 mg PO Q12H #12 caps 08/23/25 capsule prednisone 20 mg tablet 40 mg (2 x 20 mg) PO DAILY # 6 tabs 08/23/25 albuterol sulfate 2.5 mg/3 mL 2.5 mg (3 mL) inhalation Q6H PRN 08/24/25 (0.083 %) solution for nebulization sob #120 mL albuterol sulfate 2.5 mg/3 mL 2.5 mg (3 mL) inhalation Q4-6H PRN 09/24/25 (0.083 %) solution for nebulization bronchospasm #75 m L albuterol sulfate 90 mcg/actuation 2 puff inhalation Q ID PRN 09/24/25 aerosol inhaler shortness of breath or wheez ing #6.7 grams levofloxacin 750 mg tablet 750 mg PO Q24H #7 tabs 08/28 06/21 prednisone 20 mg tablet 40 mg (2 x 20 mg) PO DAILY 5 days 09/24/25 #10 tabs Allergies Allergy/AdvReac Type Severity Reaction Status Date / Time amoxicillin Allergy Severe Rash Verified 09/24/25 05:01 Review of Systems 2 Review of Systems: Constitutional : No Weight loss, No Fever, No Chills, No Night Sweats, No Fatigue, No Malaise ENT/Mouth : No Hearing loss, No Ear Pain, No Nasal Congestion, No Sinus Pain, No Hoarseness, No sore throat, No Rhinorrhea, No Swallowing Difficulty Eyes: No Eye Pain, No Swelling, No Redness, No Foreign Body, No Discharge, No Vision Changes Cardiovascular : Complaining of bilateral Chest Pain that is worse with inspiration, complaining of palpitations, denies orthopnea Respiratory : Complaining of cough, intermittent wheezing, burning sensation in both lungs with every inhalation, bilateral chest pain Gastrointestinal : No Nausea, No Vomiting, No Diarrhea, No Constipation, No abdominal Pain, No Hematochezia, No Melena Genitourinary : no irregular bleeding, No Dysuria, No Urinary Frequency, No Hematuria, No Urinary Incontinence, No Urgency, No Flank Pain, No Urinary Flow Changes, No Hesitancy Musculoskeletal : Denies lower extremity pain edema or swelling. No joint pain, No Myalgias, No Joint Swelling Skin : No Skin Lesions, No rash Neuro : No Weakness, No Numbness, No Paresthesias, No Loss of Consciousness, No Dizziness, No Headache Psych : No Anxiety/Panic, No Depression, No SI/HI/AH/VH, No Social Issues, Heme/Lymph: No Bruising, No Bleeding,No Lymphadenopathy Endocrine : No Polyuria, No Polydipsia, No Temperature Intolerance [facility] Past Medical History Medical History Perirectal fistula Anxiety Chronic back pain Asthma Family History Family History (Updated 08/20/25 @ 10:06 by Glory Kang NP) Brother Cardiac disease Social History Social History (Updated 08/20/25 @ 10:09 by Glory Knag NP) Housing Other:: from [facility], came to [facility] for snf house/ Grp home Alcohol intake: former Comment: Sober for 4 months Patient Tobacco Use Status: Current everyday Tobacco user Tobacco use type: Cigarette Cigarette Packs Per Day: 3 Cigarettes Per Day: 60.0 Use of substances other than those prescribed or required for medical reasons: No Advance Directives: No Advance Directives Information Provided: Yes Do you have a plan to hurt others: No Plan service: No Physical Exam ED Exam Exam: Appearance: Alert. Oriented X3. Looks uncomfortable Eyes: Pupils equal, round and reactive to light. ENT: Pharynx normal. Neck: Normal inspection. Neck supple. No lymph nodes noted. No crepitus CVS: Normal heart rate and rhythm. Pulses normal. Normal S1 and S2 Respiratory: No respiratory distress. Patient has bilateral rales, no crackles or wheezing at this time. Abdomen: Soft and nontender. No rigidity. No distention. Skin: Skin warm and dry. Normal skin color. Normal skin turgor. Extremities: No lower extremity edema. No Lacerations. No Rash Neuro: Oriented X 3. No motor deficit. No sensory deficit. Moving all extremities. No slurred speech. CN 2 through 12 grossly intact Psych: calm, cooperative, normal affect Vital Signs: Vital Signs - 24 hr 09/24/25 04:57 09/24/25 08:15 Temperature 98.0 F Pulse Rate 88 84 Respiratory Rate 16 16 Blood Pressure 118/91 H 114/60 Pulse Oximetry 95 98 Oxygen Delivery Method Room Air Room Air BMI result Body Mass Index 46.5 Course Course Course Narrative: Patient's oxygen saturation is 95% on room air. However, patient's seems very uncomfortable. No wheezing at this time. Patient was given IV Decadron. 10:18 AM 09/24/2025 (JESSE ARAUJO): We will broaden her pneumonia coverage with Levaquin I did discuss risks and benefits of tendinopathy she will be put on prednisone she has no hypoxia she is not labored she is nontoxic appearing Poor CTA but the D-dimer is negative she has no hypoxia I do not think this is pulmonary embolus Medications Administered Discontinued Medications Generic Name Dose Route Start Last Admin Trade Name Aida PRN Reason Stop Dose Admin Dexamethasone Sodium Phosphate 6 mg 09/24/25 06:48 09/24/25 06:56 Dexamethasone Sod Phosphate 4 Mg/Ml Vial IVPUSH 09/24/25 06:49 6 mg ONCE ONE Administration Iohexol 100 ml 09/24/25 07:50 09/24/25 07:51 Iohexol 350 Mg/Ml 100 Ml Infus..Btl IV 09/24/25 07:51 65 ml ONCE ONE Administration Medical Decision Making Medical Decision Making [facility] Narrative: My interpretation of EKG: Normal sinus rhythm, heart rate 81, no ST segment depression or elevation, no T-wave inversion, QTC 487 My interpretation of labs: Patient's white blood cell count is 4.6, slightly elevated lymphocyte count. No significant abnormality in patient's chemistry, slightly elevated LFTs Serology is negative for influenza a, influenza B, RSV. Patient tested positive for COVID Chest x-ray negative for any acute findings. Pending: -troponin -CTA chest Sign-out given to my colleague Dr. Howe Differential Diagnosis Differential Diagnoses: The differential diagnosis associated with the presentation includes (Influenza a, influenza B, RSV, COVID, viral syndrome) Admission/Observation Consideration of admission/observation: Escalation of care including admission/observation considered (Given patient's presentation and time of symptoms, observation/admission has been considered) Lab Data [facility] Lab Attestation statement: I reviewed the patient's lab results. 09/24/25 05:15 09/24/25 05:15 Labs: Lab Results 09/24/25 09/24/25 09/24/25 Range/Units 05:15 07:58 09:28 WBC 4.6 L (4.8-10.8) X10*3/uL RBC 5.12 (4.20-5.50) X10*6/uL Hgb 13.4 (12.0-16.0) g/dl Hct 44.3 (37.0-47.0) % MCV 86.5 (80.0-98.0) fL MCH 26.2 L (27.0-33.0) pg MCHC 30.2 L (31.0-35.0) g/dl RDW 13.4 (11.0-16.0) % Plt Count 259 (160-400) X10*3/uL MPV 11.3 (9.4-12.3) fL Immature Gran % (Auto) 0.4 (0.0-0.4) % Neut % (Auto) 41.4 L (45-73) % Lymph % (Auto) 44.5 H (20-40) % Moody % (Auto) 10.6 (2-11) % Eos % (Auto) 2.2 (0-4) % Baso % (Auto) 0.9 (0-2) % Lymph # (Auto) 2.1 (1.2-4.9) X10*3/uL Moody # (Auto) 0.5 (0.1-1.2) X10*3/uL Eos # (Auto) 0.1 (0.0-0.4) X10*3/uL Baso # (Auto) 0.0 (0.0-0.2) X10*3/uL Abs Immat Gran (auto) 0.02 (0.00-0.03) X10*3/uL Absolute Neuts (auto) 1.9 L (2.0-8.3) x10*3/uL Absolute Nucleated RBC 0.000 (0.0-0.012) X10*3/uL Nucleated RBC % (auto) 0.0 (0.0-0.2) /100WBC D-Dimer High Sensitivty < 150 NG/ML Sodium 143 (135-145) mmol/L Potassium 4.0 (3.3-5.1) mmol/L Chloride 114 H (96-108) mmol/L Carbon Dioxide 21 L (22-29) mmol/L Anion Gap 12 (12-20) BUN 18 H (9-16) mg/dL Creatinine 0.79 (0.5-1.4) mg/dL Estim Creat Clear Calc 96.9 Estimated GFR > 60 Random Glucose 152 H (60-115) mg/dL Calcium 9.2 (8.4-10.2) mg/dL Total Bilirubin 0.1 (0.0-1.0) mg/dL AST 35 H (5-31) U/L ALT 36 H (0-31) U/L Alkaline Phosphatase 133 H (39-117) U/L Troponin I High Sens < 2.7 (<3.5-17.0) ng/L Total Protein 6.9 (6.5-8.0) g/dL Albumin 4.4 (3.5-5.0) g/dL Urine Color Yellow Urine Appearance Clear Urine pH 5.5 (5.0-9.0) Ur Specific [place] >= 1.030 H (1.005-1.025) Urine Protein Trace (Neg-Trace) mg/dL Urine Glucose (UA) Negative (Negative) mg/dL Urine Ketones Trace (Negative) mg/dL Urine Blood Negative (Negative) Urine Nitrite Negative (Negative) Ur Leukocyte Esterase Negative (Negative) Urine Test NEGATIVE (NEGATIVE) Influenza Type A (PCR) NEGATIVE (Negative) Influenza Type B (PCR) NEGATIVE (Negative) RSV RNA Qual (PCR) NEGATIVE (Negative) SARS-CoV-2 RNA (RT-PCR) POSITIVE A (Negative) Independent Interpretation I performed an independent interpretation of an: EKG, Plain X-Ray and CT Scan Radiology Impression Discussion of test interpretation with radiology: I have reviewed the radiologist's reading. Radiologist Impression: The lungs are clear and mildly hyperinflated. Heart size is normal. No acute fracture. IMPRESSION: 1. No acute findings. Critical Care Time Critical Care Time Critical Care Time: Yes Total Critical Care Time: 35 Attestation: I have personally provided critical care time. Time includes review of lab data, radiology results, discussion with consultants, and monitoring for potential decompensation. Intervention performed as documented. Discharge Plan Discharge Clinical Impression: COVID-19, Atypical chest pain Community acquired pneumonia Qualifiers: Laterality: left Lung location: lower lobe of lung Qualified Code(s): J18.9 - Pneumonia, unspecified organism Patient Disposition: Home, Self-Care Instructions: Chest Pain (ED), Community Acquired Pneumonia (ED), COVID-19 (Coronavirus Disease 2019) (ED) Additional Instructions: Please follow-up with your primary care physician tomorrow. If you have any worsening or new symptoms, please return to the emergency room or call [address] scan showed persistent pneumonia in the lungs Your labs are reassuring other than a mild bump in your liver enzymes this is probably due to COVID Return for any worsening symptoms or concerns particularly if your oxygen level drops below 91% Rest and stay hydrated no strenuous activity while on the antibiotics and including 5 days after Prescriptions: New albuterol sulfate 2.5 mg /3 mL (0.083 %) solution for nebulization 2.5 mg inhalation Q4-6H PRN (Reason: bronchospasm) Qty: 75 0RF prednisone 20 mg tablet 40 mg PO DAILY 5 Days Qty: 10 0RF albuterol sulfate 90 mcg/actuation HFA aerosol inhaler 2 puff inhalation QID PRN (Reason: shortness of breath or wheezing) Qty: 6.7 0RF levofloxacin 750 mg tablet 750 mg PO Q24H Qty: 7 0RF No Action gabapentin 600 mg tablet 600 mg PO BID clonazepam 2 mg tablet 2 mg PO TID PRN (Reason: Anxiety) fluoxetine 20 mg capsule 20 mg PO DAILY aripiprazole 20 mg tablet 20 mg PO BEDTIME lisdexamfetamine [Vyvanse] 30 mg capsule 30 mg PO DAILY clonidine HCl 0.1 mg Tablet 0.1 mg PO DAILY@0700 hydroxyzine HCl 50 mg Tablet 50 mg PO BID clonidine HCl 0.2 mg Tablet 0.2 mg PO BEDTIME hydroxyzine HCl 25 mg Tablet 25 mg PO BEDTIME topiramate 50 mg Tablet 50 mg PO BID melatonin 5 mg Tablet 5 mg PO BEDTIME prednisone 20 mg Tablet 40 mg PO DAILY Qty: 6 0RF doxycycline monohydrate 100 mg Capsule 100 mg PO Q12H Qty: 12 0RF cefuroxime axetil 500 mg Tablet 500 mg PO BID Qty: 14 0RF albuterol sulfate 2.5 mg /3 mL (0.083 %) Solution For Nebulization 2.5 mg inhalation Q6H PRN (Reason: sob) Qty: 120 0RF Stand Alone Forms: Work/School Release Print Language: Setswana
[2025-09-24 07:17] LABS: Troponin-I High Sensitivity < 2.7 ng/L (<3.5-17.0)
[2025-09-24] MEDS: iohexoL 350 MG/ML 100 ML INFUS..BTL IV (07:51)
[2025-09-24 08:06] LABS: Appearance Urine Clear; Glucose Urine UA Negative (Negative); PH 5.5 (5.0-9.0); Specific Gravity - Urine >= 1.030 (1.005-1.025)
[2025-09-24 08:09] LABS: UPreg QC Valid YES
[2025-09-24 08:15] VITALS: BP 114/60; PULSE 84; RESP 16; O2SAT 98
--- NOTE | 2025-09-24 08:16 | PC.NURSE ---
pt is resting comfortably, her resps are = and nonlabored. her ls are clear in all [place]ane[place]. we are awaiting ct report, pt is aware of plan of care. she is not a fall risk, is on no o2 or iv drips.
[2025-09-24 09:54] LABS: D Dimer High Sensitivity < 150 NG/ML
[2025-09-24 10:59] VITALS: BP 114/60; PULSE 84; RESP 18; TEMP 36.6; O2SAT 98
== END 2025-09-24 10:45 | disposition home or self-care (01) ==
PROVIDERS: Emergency Medicine; Emergency Provider Emergency Medicine
DX: U07.1 COVID-19 (principal); R07.89 Other chest pain; R00.2 Palpitations; R06.02 Shortness of breath; Z79.899 Other long term (current) drug therapy; F17.210 Nicotine dependence, cigarettes, uncomplicated
CPT/HCPCS: 36415; 71045; 71275; 80053; 81003; 81025; 84484; 85025; 85379; 87637; 93005; 96374; 99285; J1100; Q9967

== ENCOUNTER → 2025-09-24 05:25 | Outpatient (BNV) | payer MEDICAID, SELFPAY | PROVIDERS: Emergency Provider Emergency Medicine; Visit Provider Radiology Diagnostic Radiology | DX: R07.9 Chest pain, unspecified (principal); R06.02 Shortness of breath; R00.0 Tachycardia, unspecified | CPT/HCPCS: 71045; 71275 ==

== ENCOUNTER → 2025-09-24 06:20 | Outpatient (BNV) | payer MEDICAID, SELFPAY | PROVIDERS: Emergency Provider Emergency Medicine; Visit Provider Internal Medicine | DX: R94.31 Abnormal electrocardiogram [ECG] [EKG] (principal); R06.02 Shortness of breath | CPT/HCPCS: 93010 ==